=== PATIENT | male | born 1985 | race Caucasian/White ===

== ENCOUNTER 2020-04-24 11:23 | Emergency (ER) | payer MEDICAID, SELFPAY ==
[2020-04-24 11:27] VITALS: BP 155/93; PULSE 83; RESP 16; TEMP 37.1; O2SAT 100; BMI 27.4
--- NOTE | 2020-04-24 13:00 | ED.MALEGU ---
HPI - Male Genitourinary General Chief complaint: Urogenital-Male <CARLITOS Holt - Last Filed: 04/24/20 15:41> Stated complaint: flank pain <CARLITOS Holt - Last Filed: 04/24/20 15:41> Time Seen by Provider: 04/24/20 12:55 <CARLITOS Holt - Last Filed: 04/24/20 15:41> Source: patient <CARLITOS Holt Last Filed: 04/24/20 15:41> Mode of arrival: ambulatory <CARLITOS Holt Last Filed: 04/24/20 15:41> History of Present Illness HPI Narrative: 34-year-old male with a past medical history of renal stones presented to ED complaining of bilateral flank pain x3 days with associated dysuria and hematuria. Admits to similar symptoms in the past with stones, requiring surgery 1 year ago at [facility]. Also reports nausea/vomiting. Denies fever, chills, diarrhea/constipation <CARLITOS Holt Last Filed: 04/24/20 15:41> MD Complaint: dysuria <CARLITOS Holt - Last Filed: 04/24/20 15:41> Related Data Allergies/Adverse reactions: Allergies Allergy/AdvReac Type Severity Reaction Status Date / Time No Known Allergies Allergy Unverified 01/26/20 17:04 <CARLITOS Holt - Last Filed: 04/24/20 15:41> Review of Systems Review of Systems: Constitutional: No Weight loss, No Fever, No Chills Cardiovascular: No Chest Pain, No SOB Respiratory: No Cough, No Sputum, No Wheezing Gastrointestinal: + Nausea, + Vomiting, No Diarrhea, No Constipation, + Abdominal pain Genitourinary: + Dysuria, No Urinary Frequency, + Hematuria, + Flank Pain Musculoskeletal: No joint pain, No Myalgias, No Joint Swelling Skin: No Skin Lesions, No rash <CARLITOS Holt Last Filed: 04/24/20 15:41> Yes all other systems are reviewed and are negative <CARLITOS Holt Last Filed: 04/24/20 15:41> PMFSH Past Medical History Attestation statement: The following information was validated with the patient. <CARLITOS Holt - Last Filed: 04/24/20 15:41> Medical History: Medical History (Updated 04/25/20 @ 00:28 by Cristina Edmondson) Kidney stones <CARLITOS Holt - Last Filed: 04/24/20 15:41> Social History Social History: Social History Advance Directives: No Advance Directives Information Provided: No <CARLITOS Holt - Last Filed: 04/24/20 15:41> Physical Exam Vital Signs: Vital Signs: Last Vital Signs Temp 98.7 F 04/24/20 11:27 Pulse 69 04/24/20 13:49 Resp 16 04/24/20 13:49 BP 111/66 04/24/20 13:49 Pulse Ox 99 04/24/20 13:49 Body Mass Index 27.4 <CARLITOS Holt - Last Filed: 04/24/20 15:41> Vital Signs: Last Vital Signs Temp 98.7 F 04/24/20 11:27 Pulse 69 04/24/20 13:49 Resp 16 04/24/20 13:49 BP 111/66 04/24/20 13:49 Pulse Ox 99 04/24/20 13:49 Body Mass Index 27.4 <Juan Patel MD - Last Filed: 05/06/20 09:44> Const: General: cooperative and healthy appearing <CARLITOS Holt - Last Filed: 04/24/20 15:41> Orientation/consciousness: patient oriented x3 <CARLITOS Holt - Last Filed: 04/24/20 15:41> Limitations: no limitations <CARLITOS Holt - Last Filed: 04/24/20 15:41> HENMT: Head: Yes normal to inspection <CARLITOS Holt - Last Filed: 04/24/20 15:41> Ears: hearing grossly normal bilaterally <CARLITOS Holt - Last Filed: 04/24/20 15:41> General nose exam: Normal external nose present <CARLITOS Holt - Last Filed: 04/24/20 15:41> Face and sinus: Yes normal facial exam <CARLITOS Holt - Last Filed: 04/24/20 15:41> Eyes: General: appearance normal, both eyes and all related structures <CARLITOS Holt - Last Filed: 04/24/20 15:41> EOM: EOMs intact bilaterally <Komal Uday PA - Last Filed: 04/24/20 15:41> Neck: Neck: Yes normal visual inspection <Komal Uday PA - Last Filed: 04/24/20 15:41> Resp: Effort & Inspection: normal respiratory effort <Komal Uday [place] - Last Filed: 04/24/20 15:41> Auscultation: clear to auscultation bilaterally, no crackles and no rhonchi <Komal Uday, PA - Last Filed: 04/24/20 15:41> Cardio: Rate: regular rate <Komal Uday PA - Last Filed: 04/24/20 15:41> Heart sounds: S1 normal heart sound present and S2 normal heart sound present <Komal [place], PA - Last Filed: 04/24/20 15:41> GI: Inspection: Yes normal to inspection <Komal Uday [place] - Last Filed: 04/24/20 15:41> Palpation (GI): Soft to palpation, Tenderness to palpation present (GI) in the epigastrum and in the LLQ, no guarding and not rigid <Komal Uday PA - Last Filed: 04/24/20 15:41> : General: Yes CVA tenderness bilateral <Komal Uday PA - Last Filed: 04/24/20 15:41> Skin: Rashes: no rashes <Komal Uday [place] - Last Filed: 04/24/20 15:41> Wounds: no wounds <Komal Uday [place] - Last Filed: 04/24/20 15:41> Neuro: General: patient oriented x3 <Komal Uday PA - Last Filed: 04/24/20 15:41> Gait exam (Neuro): Normal gait present <Komal Uday PA - Last Filed: 04/24/20 15:41> Extrem: General: Yes normal to inspection <Komal Uday PA - Last Filed: 04/24/20 15:41> Course Course Course Narrative: Labs unremarkable CT showing nonobstructive bilateral radiopaque renal calculi. No hydronephrosis Results discussed with patient, patient reports still in pain, discussed with patient need UA sample. Patient requesting pudding/water. 1535--patient tolerated p.o. in the ED. when patient found out he would not be getting narcotic pain medication told nurse he would like to leave, will not provide urine sample. Will discharge with PCP/Urology follow-up <CARLITOS Holt - Last Filed: 04/24/20 15:41> I have reviewed the chart <Juan Patel MD - Last Filed: 05/06/20 09:44> MDM - Male Genitourinary MDM Narrative Medical decision making narrative: 34-year-old male with a past medical history of renal stones presented to ED complaining of bilateral flank pain x3 days with associated dysuria and hematuria. On exam VS, NAD/well-appearing, bilateral CVAT noted on exam with upper abdominal TTP, no rebound or guarding. Concern for renal stone vs UTI/pyelo. Pancreatitis/cholecystitis/liver disease on differential but lower. Low concern for diverticulitis/med ascites Plan: Labs, UA, CT AP, IVF, symptomatic therapy/reassess <CARLITOS Holt - Last Filed: 04/24/20 15:41> Lab Data Result diagrams: : 04/24/20 13:16 04/24/20 13:16 <CARLITOS Holt - Last Filed: 04/24/20 15:41> Labs: Lab Results 04/24/20 04/24/20 04/24/20 Range/Units 13:16 13:16 13:16 WBC 7.4 (4.8-10.8) X10*3/uL RBC 4.76 (4.60-5.80) X10*6/uL Hgb 14.3 (14.0-18.0) g/dl Hct 44.6 (42-52) % MCV 93.7 (80-98) fL MCH 30.0 (27.0-33.0) pg MCHC 32.1 (31.0-36.0) g/dl RDW 12.4 (11.0-16.0) % Plt Count 252 (160-400) X10*3/uL MPV 10.3 (9.4-12.4) fL Immature Gran % (Auto) 0.3 (0.0-0.4) % Neut % (Auto) 78.8 H (45-73) % Lymph % (Auto) 13.2 L (20-40) % [place] % (Auto) 7.0 (2-11) % Eos % (Auto) 0.3 (0-4) % Baso % (Auto) 0.4 (0-2) % Lymph # (Auto) 1.0 L (1.2-4.9) X10*3/uL [place] # (Auto) 0.5 (0.1-1.2) X10*3/uL Eos # (Auto) 0.0 (0.0-0.4) X10*3/uL Baso # (Auto) 0.0 (0.0-0.2) X10*3/uL Abs Immat Gran (auto) 0.02 (0.00-0.03) X10*3/uL Absolute Neuts (auto) 5.9 (2.0-8.3) X10*3/uL Absolute Nucleated RBC 0.000 (0.0-0.012) X10*3/uL Nucleated RBC % (auto) 0.0 (0.0-0.2) /100WBC Hold Blue Top SEE NOTE Sodium 139 (135-145) mmol/L Potassium 4.5 (3.3-5.1) mmol/l Chloride 105 (96-108) mmol/L Carbon Dioxide 27 (22-29) mmol/L Anion Gap 12 (12-20) BUN 14 (9-16) mg/dL Creatinine 0.78 (0.5-1.4) mg/dL Estim Creat Clear Calc 127.3 Estimated GFR > 60 Random Glucose 97 (60-115) mg/dL Calcium 9.1 (8.4-10.2) mg/dL Total Bilirubin 0.4 (0.0-1.0) mg/dL Direct Bilirubin 0.2 (0.0-0.5) mg/dL AST 31 (5-37) U/L ALT 32 (0-40) U/L Alkaline Phosphatase 71 (39-117) U/L Total Protein 7.1 (6.5-8.0) g/dL Albumin 4.4 (3.5-5.0) g/dL Lipase 8 (8-78) U/L <Komal [facility], [place] - Last Filed: 04/24/20 15:41> Lab Results 04/24/20 04/24/20 04/24/20 Range/Units 13:16 13:16 13:16 WBC 7.4 (4.8-10.8) X10*3/uL RBC 4.76 (4.60-5.80) X10*6/uL Hgb 14.3 (14.0-18.0) g/dl Hct 44.6 (42-52) % MCV 93.7 (80-98) fL MCH 30.0 (27.0-33.0) pg MCHC 32.1 (31.0-36.0) g/dl RDW 12.4 (11.0-16.0) % Plt Count 252 (160-400) X10*3/uL MPV 10.3 (9.4-12.4) fL Immature Gran % (Auto) 0.3 (0.0-0.4) % Neut % (Auto) 78.8 H (45-73) % Lymph % (Auto) 13.2 L (20-40) % [place] % (Auto) 7.0 (2-11) % Eos % (Auto) 0.3 (0-4) % Baso % (Auto) 0.4 (0-2) % Lymph # (Auto) 1.0 L (1.2-4.9) X10*3/uL [place] # (Auto) 0.5 (0.1-1.2) X10*3/uL Eos # (Auto) 0.0 (0.0-0.4) X10*3/uL Baso # (Auto) 0.0 (0.0-0.2) X10*3/uL Abs Immat Gran (auto) 0.02 (0.00-0.03) X10*3/uL Absolute Neuts (auto) 5.9 (2.0-8.3) X10*3/uL Absolute Nucleated RBC 0.000 (0.0-0.012) X10*3/uL Nucleated RBC % (auto) 0.0 (0.0-0.2) /100WBC Hold Blue Top SEE NOTE Sodium 139 (135-145) mmol/L Potassium 4.5 (3.3-5.1) mmol/l Chloride 105 (96-108) mmol/L Carbon Dioxide 27 (22-29) mmol/L Anion Gap 12 (12-20) BUN 14 (9-16) mg/dL Creatinine 0.78 (0.5-1.4) mg/dL Estim Creat Clear Calc 127.3 Estimated GFR > 60 Random Glucose 97 (60-115) mg/dL Calcium 9.1 (8.4-10.2) mg/dL Total Bilirubin 0.4 (0.0-1.0) mg/dL Direct Bilirubin 0.2 (0.0-0.5) mg/dL AST 31 (5-37) U/L ALT 32 (0-40) U/L Alkaline Phosphatase 71 (39-117) U/L Total Protein 7.1 (6.5-8.0) g/dL Albumin 4.4 (3.5-5.0) g/dL Lipase 8 (8-78) U/L <Juan Patel MD - Last Filed: 05/06/20 09:44> Discharge Plan Discharge Clinical Impression: Renal calculi <CARLITOS Holt - Last Filed: 04/24/20 15:41> Patient Disposition: Home, Self-Care <CARLITOS Holt - Last Filed: 04/24/20 15:41> Instructions: Kidney Stones (ED) <CARLITOS Holt - Last Filed: 04/24/20 15:41> Additional Instructions: Today in the ED Your CT scan showed multiple stones in both of her kidneys, non passing, no inflammation He did not provide us with a urine sample today Follow up with her primary care doctor as well as Urology as needed If her symptoms persist or worsen, pain becomes unbearable, your unable to eat or drink, develop nausea or vomiting return to the ED <CARLITOS Holt - Last Filed: 04/24/20 15:41> Referrals: Blue Mathews III, MD [Physician] - 3 days <CARLITOS Holt - Last Filed: 04/24/20 15:41> Interventions: ED Discharge Assessment Last Done: 04/24/20 15:46 <CARLITOS Holt Last Filed: 04/24/20 15:41> Discharge Date/Time: 04/24/20 16:08 <CARLITOS Holt - Last Filed: 04/24/20 15:41>
[2020-04-24] MEDS: Ketorolac Tromethamine 15 MG/ML VIAL IVPUSH (13:22)
[2020-04-24 13:23] LABS: Basophils Percent Auto 0.4 % (0-2); Eosinophils Percent Auto 0.3 % (0-4); Hematocrit 44.6 % (42-52); Hemoglobin 14.3 g/dl (14.0-18.0); Imm Gran Abs Auto 0.02 X10*3/uL (0.00-0.03); Imm Gran Pct Auto 0.3 % (0.0-0.4); Lymphocytes Percent Auto 13.2 % (20-40); MANUAL DIFF FLAG NO; Mean Corpuscular HGB Conc 32.1 g/dl (31.0-36.0); Mean Corpuscular Volume 93.7 fL (80-98); Mean Platelet Volume 10.3 fL (9.4-12.4); Monocytes Absolute Auto 0.5 X10*3/uL (0.1-1.2); Neutrophils Absolute Auto 5.9 X10*3/uL (2.0-8.3); Neutrophils Percent Auto 78.8 % (45-73); Platelet Count 252 X10*3/uL (160-400); Red Blood Count 4.76 X10*6/uL (4.60-5.80); Red Cell Distribution Width 12.4 % (11.0-16.0); White Blood Count 7.4 X10*3/uL (4.8-10.8)
[2020-04-24] MEDS: 0.9 % Sodium Chloride 1,000 ML 999 ML IVCONT (13:23)
[2020-04-24] MEDS: ondansetron HCL 4 MG/2 ML VIAL IVPUSH (13:23)
--- NOTE | 2020-04-24 13:28 | CT_ITS ---
EXAMINATION: CT ABDOMEN AND PELVIS WITHOUT CONTRAST CLINICAL INFORMATION: Bilateral flank pain and hematuria. COMPARISON: None TECHNIQUE: Multidetector volumetric imaging was performed from the superior aspect of the liver through the pubic symphysis. Sagittal and coronal reformatted images were obtained on the technologist's workstation. This CT examination was performed using dose optimization techniques as appropriate, variously including the following: *Automated exposure control *Adjustment of mA and/or kV according to patient size (this includes techniques or standardized protocols for targeted exams where dose is matched to indication/reason for exam; i.e. extremities or head) *Use of iterative reconstruction technique DLP: 406 mGy-cm FINDINGS: LUNG BASES: The visualized lung bases are unremarkable. LIVER, GALLBLADDER, AND BILIARY TREE: The liver is normal in size, shape, and attenuation. No focal hepatic lesion or biliary ductal dilatation is present. The gallbladder is unremarkable with no evidence of radiopaque gallstones, gallbladder wall thickening, or obvious pericholecystic inflammatory changes. PANCREAS: Unremarkable. SPLEEN: Unremarkable. ADRENAL GLANDS: Unremarkable. KIDNEYS AND URETERS: The kidneys are normal in size, shape, and attenuation. There is a 5 mm radiopaque calculi upper and midpole left kidney and the urinary radiopaque calculi lower pole calyx left kidney and few punctate 1 mm calculi in the lower pole calyces as well. There are punctate 2 mm and 1 mm radiopaque calculi in the lower pole calyx right kidney. No caliectasis or hydronephrosis seen. BLADDER: Unremarkable. GASTROINTESTINAL TRACT: There is scattered stool and gas seen throughout the colon without any significant distention. The small bowel loops are normal caliber. Stomach is nondistended. ABDOMINAL WALL: No significant hernia is appreciated. LYMPH NODES: There are no abnormal lymph nodes seen. VASCULAR: Unremarkable. PELVIC VISCERA: There is no free fluid or free air. There is a punctate calcification seen in the right pelvis most likely small phlebolith does not appear to be a ureteral cyst as there is no proximal ureteral dilatation. OSSEOUS STRUCTURES: No lytic or sclerotic process seen. CT/CT abdomen pelvis wo con IMPRESSION: Nonobstructive bilateral radiopaque renal calculi. No calculi cases hydronephrosis seen. Moderate constipation without obstruction.
[2020-04-24 13:49] VITALS: BP 111/66; PULSE 69; RESP 16; O2SAT 99
[2020-04-24 13:56] LABS: Alanine Aminotransferase 32 U/L (0-40); Albumin Level 4.4 g/dL (3.5-5.0); Alkaline Phosphatase 71 U/L (39-117); Anion Gap 12 (12-20); Aspartate Amino Transferase 31 U/L (5-37); Bilirubin Direct 0.2 mg/dL (0.0-0.5); Bilirubin Total 0.4 mg/dL (0.0-1.0); Blood Urea Nitrogen 14 mg/dL (9-16); Calcium 9.1 mg/dL (8.4-10.2); Carbon Dioxide 27 mmol/L (22-29); Chloride 105 mmol/L (96-108); Creatinine Clr Calc Pharmacy 127.3; Estimated Glomerular Filt Rate > 60; Glucose Random 97 mg/dL (60-115); Lipase 8 U/L (8-78); Potassium 4.5 mmol/l (3.3-5.1); Sodium 139 mmol/L (135-145); Total Protein 7.1 g/dL (6.5-8.0)
--- NOTE | 2020-04-24 15:39 | PC.NURSE ---
PATIENT STATES UNABLE TO GIVE URINE. PATIENT OFFERED TORADOL FOR CONTINUED PAIN. PATIENT REFUSED AND ASKED FOR DISCHARGE PAPAERS. PROVIDER AWARE. IV REMOVED
== END 2020-04-24 16:08 | disposition home or self-care (01) ==
PROVIDERS: Physician Assistant; Emergency Provider Emergency Medicine; PCP Internal Medicine
DX: N20.0 Calculus of kidney (principal); R10.9 Unspecified abdominal pain
CPT/HCPCS: 36415; 74176; 80048; 80076; 83690; 85025; 96361; 96374; 96375; 99283; 99284; J1885; J2405

== ENCOUNTER 2020-12-04 12:41 | Emergency (ER) | payer MEDICAID, SELFPAY | END 2020-12-04 14:16 | disposition left against medical advice (07) | PROVIDERS: Emergency Provider Emergency Medicine | DX: Z13.30 Encounter for screening examination for mental health and behavioral disorders, unspecified (principal) ==

== ENCOUNTER 2024-04-04 10:48 | Outpatient (REF) | payer MEDICAID, SELFPAY | END 2024-04-04 10:49 | disposition home or self-care (01) | LOC: HO.XRAY 10:48 | PROVIDERS: PCP Internal Medicine; Visit Provider Internal Medicine | DX: M79.672 Pain in left foot (principal) | CPT/HCPCS: 73630 ==